=== PATIENT | male | born 1945 | race Caucasian/White ===

== ENCOUNTER 2025-02-23 10:27 | Outpatient (CLI) | payer MEDICARE, SELFPAY ==
[2025-02-23 14:39] LABS: Hematocrit 40.7 % (42.0-52.0); Hemoglobin 13.5 g/dL (14.1-18.0); Immature Granulocytes % 0 %; Mean Corpuscular HGB Conc 33.2 g/dL (31.8-35.4); Mean Corpuscular Hemoglobin 30.3 pg (27.0-31.2); Mean Corpuscular Volume 91.5 fl (80-94); Nucleated Red Blood Cells % 0 %; Platelet Count 168 K/mm3 (142-424); Red Blood Count 4.45 M/mm3 (4.60-6.20); Red Cell Distribution Width-SD 46.7 fL; White Blood Count 3.3 K/mm3 (4.8-10.8)
[2025-02-23 15:55] LABS: Albumin Level 5.0 g/dl (3.5-5.0); Chloride 102 mmol/L (98-107)
[2025-02-23 15:56] LABS: Potassium 4.5 mmoL/L (3.5-5.1); Sodium 134 mmol/L (136-145)
[2025-02-23 15:58] LABS: Alanine Aminotransferase 28 U/L (12-78); Alkaline Phosphatase 86 U/L (38-126); Anion Gap 8.5 mEq/L (5-15); Aspartate Amino Transferase 34 U/L (17-59); Bilirubin,Total 0.8 mg/dl (0.2-1.3); Carbon Dioxide 28 mmol/L (22.0-30.0)
[2025-02-23 15:59] LABS: Albumin/Globulin Ratio 2.4 (1.1-1.8); Calcium 9.3 mg/dl (8.4-10.2); Cholesterol 218 mg/dl (140-200); Globulin 2.1 g/dL (1.3-3.2); Glucose 98 mg/dl (74-100); HDL Cholesterol 49 mg/dl (40-60); Total Protein,Serum 7.1 g/dl (6.3-8.2); Triglycerides 105 mg/dl (30-150)
[2025-02-23 16:18] LABS: Blood Urea Nitrogen 17 mg/dl (9-20); Creatinine,Serum 1.20 mg/dl (0.66-1.25); Estimated Glomerular Filt Rate 59 ml/min (>60); GFR (African American) 71 ML/MIN (>60)
[2025-02-23 16:29] LABS: Thyroid Stimulating Hormone 2.48 uIU/mL (0.465-4.68)
--- OUTSIDE RECORDS SUMMARY | 2025-02-26 10:40 | XMS_ITS | Clinical Summary ---
Author Organization [facility] Address [address] [place] [address] Phone Care Team Providers Care Early Childhood Associate Teacher Name Role Phone Unavailable Primary Care Provider Unavailabl e Allergies No known active allergies Medications loratadine (CLARITIN) 10 mg tabletIndications :Seasonal allergies Take 10 mg by mouth daily. Active mometasone (ELOCON) 0.1 % Top CreamIndications: Rash Apply topically daily. 1 Tube 6 0 Active hydroCHLOROthiazi de (MICROZIDE) 12.5 mg Oral CapsuleIndication s:Essential hypertension TAKE 1 CAPSULE BY MOUTH DAILY. 30 Capsule 6 2 Active amLODIPine (NORVASC) 5 mg Oral TabletIndications :Essential hypertension TAKE 1 TABLET BY MOUTH DAILY * MUST MAKE APPT 30 Tablet 2 2 Active Active Problems Problem Noted Date Diagnosed Date Hard of hearing 04/29/2021 Essential hypertension 04/22/2016 Overview (04/08/2020): BP Readings from Last 3 Encounters: 04/08/20 142/84 06/06/18 132/80 05/20/17 144/88 Taking meds. Well controlled. Denies chest pain and SOB, swelling, dizziness or orthostatics. Alcohol screening 04/22/2016 Overview (05/20/2017): does not drink alcohol Screening for depression 04/22/2016 Overview (05/20/2017): In the past two weeks, how often have you felt down, depressed, or hopeless? None Have you felt little interest or pleasure in doing things? no Living will, counseling/discussion 04/26/2014 Overview (04/22/2016): DNR Documentation requested 04/22/16 DNR (do not resuscitate) 04/26/2014 Overview (04/22/2016): Documentation requested 04/22/16 Seasonal allergies 08/07/2011 Overview (05/20/2017): Stable on loratadine continue the same. Resolved Problems Problem Noted Date Diagnosed Date Resolved Date Infected sebaceous cyst 08/07/201103/27 Immunizations Immunization Administration Dates Next Due Pneumococcal Conjugate Vaccine 13 Valent 016 Pneumococcal Polysaccharide 23 Valent 07/23/2014 Surgical History Surgery Date Site/Laterality Comments CYST REMOVAL scalp Medical History Medical History Date Comments Allergy Psoriasis DNR (do not resuscitate) 2014 Living will, counseling/discussion 2014 DNR Essential hypertension 04/22/2016 Family History Medical History Relation Name Comments Heart Disease Mother Colon Cancer Neg Hx Prostate Cancer Neg Hx Relation Name Status Comments Father Alive Maternal Grandfather Maternal Grandmother Mother Paternal Grandfather Paternal Grandmother Social History Tobacco Use Types Packs/Day Years Used Date Smoking Tobacco: Former Cigarettes Q uit: 04/26/1977 Smokeless Tobacco: Never Tobacco Cessation:Counseling Given: Yes Alcohol Use Standard Drinks/Week Comments No 0 (1 standard drink = 0.6 oz pur e alcohol) PHQ-2 Answer Date Recorded PHQ-2 Total Score 0 04/29/2021 Sexually Active Control Partners Comments Never Sex and Gender Information Value Date Recorded Sex Assigned at Not on file Legal Sex Male 2:15 PM EDT Gender Identity Not on file Sexual Orientation Not on file Last Filed Vital Signs Vital Sign Reading Time Taken Comments Blood Pressure 130/80 04/29/2021 4:16 PM EST Pulse 94 04/29/2021 4:16 PM EST Temperature 36.4 C (97.5 F) 04/29/2021 4:16 PM EST Respiratory Rate 20 04/29/2021 4:16 PM EST Oxygen Saturation 95% 04/29/2021 4:16 PM EST Inhaled Oxygen Concentration - - Weight 77.6 kg (171 lb) 04/29/2021 4:16 PM EST Height 167.6 cm (5' 6 ) 04/29/2021 4:16 PM EST Body Mass Index 27.6 04/29/2021 4:16 PM EST Plan of Treatment Health Maintenance Due Date Last Done Comments Annual Wellness Exam 08/25/1948 DTaP/TDaP/Td (1 - Tdap) 08/25/1966 Zoster (1 of 2) 08/25/1997 RSV or 60+ (1 - 1-dose 75+ series) 08/25/2022 COVID-19 Vaccine (1 - 2024-2 6 season) 2024 Influenza Vaccine (#1) 2024 8 (Declined), 04/22/2016 (Declined) Hepatitis C Screening Completed 04/22/2016 Pneumococcal Vaccine 50+ Completed 016, 07/23/2014 Colon Cancer Screening Discontinued FIT Discontinued 05/26/2017 Cologuard Discontinued Colonoscopy Discontinued Hepatitis B Vaccine Aged Out No longe r eligible based on patient's age to complete this topic Meningococcal B Vaccine Aged Out No l onger eligible based on patient's age to complete this topic Sigmoidoscopy Discontinued Virtual Colonography Discontinued Goals Goal Patient Goal Type Associated Problems Recent Progress Patient-Stated? Author Blood Pressure < 140/90 Blood Pressure 130/80(2021 4:16 PM EST) No Isauro Conrad MD Maintain a healthy diet, exercise regularly and maintain an ideal body weight General No Margaret Rust CMA Stay Tobacco Free Lifestyle No Margaret Rust CMA Procedures Procedure Name Priority Date/Time Associated Diagnosis Comments FECAL HEME (FIT) CANCER SCREEN Routine 05/26/2017 10:50 AM EST Colon cancer screening HEPATITIS C ANTIBODY IGM + IGG Routine 04/22/2016 10:42 AM EST Encounter for hepatitis C screening test for low risk patient from Last 3 Months or Most Recently Relevant to Health Maintenance Results * FECAL HEME SCREEN (05/26/2017 10:50 AM EST) Fecal Heme Scrn Negative Negative 05/26/2017 7:54 PM EST [facility] Stool COLON STRUCTURE / Unknown 05/26/2017 10:50 AM EST 05/26/2017 10:50 AM EST Isauro Conrad MD IMMUNOLOGY ORDERABLES Final Result Performing Organization Address [facility] Co de Phone Number [facility] [address] [place] [address] * HEPATITIS C ANTIBODY IGM + IGG (04/22/2016 10:42 AM EST) Hep C Ab Negative Negative [facility] Blood specimen (specimen) UPPER LIMB STRUCTURE / Unknown 04/22/2016 10:42 AM EST 04/22/2016 4:34 PM EST Isauro Conrad MD IMMUNOLOGY ORDERABLES Final Result Performing Organization Address [facility] Phone Number [facility] [address] [place] [address] from Last 3 Months or Most Recently Relevant to Health Maintenance Insurance [place]ICARE [place] AND B [place] [address] [facility]
== END 2025-02-23 23:59 ==
LOC: LAB.DROPOF 02-26 10:28
PROVIDERS: PCP Nurse Practitioner Family; Visit Provider Nurse Practitioner Family
DX: F41.9 Anxiety disorder, unspecified (principal); I10 Essential (primary) hypertension; Z12.5 Encounter for screening for malignant neoplasm of prostate
CPT/HCPCS: 80053; 80061; 84443; 85025; G0103